=== PATIENT | female | born 1960 | race American Indian/Alaskan Native ===

== ENCOUNTER 2017-01-02 10:15 | Outpatient (CLI) | payer OTHER ==
--- NOTE | 2017-01-03 13:34 | Mammography Report ---
BILATERAL DIGITAL SCREENING MAMMOGRAM with CAD: 01/02/17 10:15:00 CLINICAL: Routine screening. COMPARISON:12/23/15, 07/03/13, 05/23/12 and 04/14/10 FINDINGS: The breasts are heterogeneously dense, which may obscure small masses. No mass, architectural distortion or suspicious calcifications. IMPRESSION: No mammographic evidence of malignancy. BI-RADS CATEGORY: 1 - - Negative RECOMMENDATION: Routine mammographic screening in one year. COMMENT: Patient follow-up letters are generated by our [email or web address] application.
== END 2017-01-02 10:16 | disposition home or self-care (01) ==
LOC: SPVWC 10:15
PROVIDERS: ATTEND Family Medicine
DX: Z12.31 Encounter for screening mammogram for malignant neoplasm of breast (principal)
CPT/HCPCS: 77067; G0202

== ENCOUNTER 2017-06-05 08:06 | Observation (INO) | payer OTHER ==
--- NOTE | 2017-06-03 10:40 | Anesthesia Consultation ---
Anesthesia Consult and Med Hx Date of service: 06/03/17 - Airway Anesthetic Teeth Evaluation: Dentures ROM Head & Neck: Adequate Mental/Hyoid Distance: Adequate Mallampati Class: Class II Intubation Access Assessment: Probably Good - Pulmonary Exam CTA: Yes - Cardiac Exam Cardiac Exam: RRR - Pre-Operative Health Status ASA Pre-Surgery Classification: ASA2 Proposed Anesthetic Plan: General Nerve Block: TAP - Cardiovascular System Hx Hypertension: Yes (x 10 yrs) - Central Nervous System Hx Psychiatric Problems: No - Endocrine Hx Non-Insulin Dependent Diabetes: Yes - Hematic Hx Anemia: Yes - Other Systems Hx Cancer: No
[2017-06-03 11:20] LABS: Basophils % (Auto) 0.7 % (0.0-1.8); Eosinophils % (Auto) 1.6 % (0.0-4.3); Hematocrit 36.8 % (30.3-42.9); Hemoglobin 12.6 gm/dl (10.1-14.3); Mean Corpuscular HGB Conc 34 % (30-34); Mean Corpuscular Volume 72 fl (79-97); Platelet Count 320 K/mm3 (140-440); Red Blood Count 5.08 M/mm3 (3.65-5.03); White Blood Count 6.8 K/mm3 (4.5-11.0)
[2017-06-03 11:36] LABS: Mean Corpuscular Hemoglobin 25 pg (28-32)
[2017-06-03 11:43] LABS: Anion Gap 20 mmol/L; BUN/Creatinine Ratio 21; Blood Urea Nitrogen 15 mg/dL (7-17); Calcium 9.2 mg/dL (8.4-10.2); Carbon Dioxide 22 mmol/L (22-30); Chloride 101.9 mmol/L (98-107); Glucose 154 mg/dL (65-100); Potassium 3.9 mmol/L (3.6-5.0); Sodium 140 mmol/L (137-145)
--- NOTE | 2017-06-05 07:21 | History and Physical Report ---
History of Present Illness Date of examination: 06/05/17 Date of admission: 06/05/2017 Chief complaint: Chronic pelvic pain History of present illness: 56-year-old 003 with a history of worsening chronic pelvic pain. The patient had an ultrasound that demonstrated findings of a leiomyoma measuring 2 cm. The ultrasound also indicated that the endometrial lining was thickened. The patient underwent an endometrial biopsy in the office with negative pathology. The patient has elected to undergo definitive surgical management. Past History Past Medical History: diabetes, high cholesterol Past Surgical History: cholecystectomy, other (tubal ligation) [employer] History: trichomonas Social history: single - Obstetrical History : 3 Para: 3 Hx # Term Pregnancies: 3 Number of Pregnancies: 0 Spontaneous Abortions: 0 Induced : 0 Number of Living Children: 3 Medications and Allergies Allergies Allergy/AdvReac Type Severity Reaction Status Date / Time No Known Allergies Allergy Unverified 05/31/17 13:21 Active Meds: Active Medications Sodium Chloride (Nacl 0.9% 1000 Ml) 1,000 mls @ 100 mls/hr IV DIRECT USAMA Review of Systems Genitourinary: pelvic pain - Physical Exam Breasts: Positive: deferred Cardiovascular: Regular rate Lungs: Positive: Clear to auscultation Abdomen: Positive: normal appearance Results Result Diagrams: 06/03/17 10:35 06/03/17 10:35 All other labs normal. Assessment and Plan - Patient Problems (1) Chronic pelvic pain in female Status: Acute Plan to address problem: Scheduled for robotic hysterectomy and bilateral salpingo-oophorectomy (2) Leiomyoma Status: Acute (3) Endometrial thickening on ultra sound Status: Acute
[~2017-06-05 08:06] MED LIST: ANCEF/STERILE WATER 2 GM/20 ML 2 GM/20 ML SYRINGE IV SCH; NEURONTIN PO NR; PEPCID PO NR; SUBLIMAZE IV ONE; VERSED IV NR
[2017-06-05] MEDS ORDERED: DILAUDID IV PRN (08:52)
[2017-06-05] MEDS ORDERED: NEURONTIN PO NR (09:00)
[2017-06-05] MEDS ORDERED: MARCAINE 0.5% INFILTRATI NR (09:00)
[2017-06-05] MEDS ORDERED: PEPCID PO NR (09:00)
[2017-06-05] MEDS ORDERED: XYLOCAINE 1% 20 mL INFILTRATI NR (09:00)
[2017-06-05] MEDS ORDERED: VERSED IV NR (09:00)
[2017-06-05] MEDS ORDERED: NACL BACTERIOSTATIC INFILTRATI ONE (09:16)
[2017-06-05] MEDS: NACL 0.9% 1000 ML 1,000 ML IV SCH ×2 (09:19→13:00)
[2017-06-05] MEDS ORDERED: ZOFRAN IV PRN (09:30)
[2017-06-05] MEDS ORDERED: SUBLIMAZE IV ONE (09:30)
--- NOTE | 2017-06-05 09:49 | Anesthesia Day of Surgery ---
Anesthesia Day of Surgery - Day of Surgery Patient Examined: Yes Patient H&P Reviewed: Yes Patient is NPO: Yes
[2017-06-05] MEDS ORDERED: DECADRON ONE ×2 (10:02→11:14)
[2017-06-05] MEDS ORDERED: MARCAINE 0.5% 30 ML INFILTRATI ONE (10:02)
[2017-06-05] MEDS ORDERED: CLONIDINE 1,000 MCG/10 ML VIAL EP ONE (10:02)
[2017-06-05] MEDS ORDERED: DIPRIVAN 10 MG/ML IV ONE (10:07)
[2017-06-05] MEDS ORDERED: DILAUDID ONE (10:08)
[2017-06-05] MEDS ORDERED: ZEMURON IV ONE (10:08)
[2017-06-05] MEDS ORDERED: XYLOCAINE MPF 2% ONE (10:08)
[2017-06-05] MEDS ORDERED: NEOSPORIN GU IR ONE ×2 (10:15→11:38)
--- NOTE | 2017-06-05 10:54 | XRay Report ---
PORTABLE CHEST INDICATION: Central line placement. COMPARISON: 03/12/2008 FINDINGS: Portable, frontal chest radiograph demonstrates normal cardiomediastinal silhouette. Clear lungs. No pneumothorax. Right IJ catheter tip about the cavoatrial junction. EKG leads. Intact bones. CONCLUSION: No acute chest process with uncomplicated right-sided central catheter, as described. Thank you for the opportunity to participate in this patient's care.
[2017-06-05] MEDS ORDERED: GELFOAM POWDER 1GM MM ONE ×2 (11:13→11:38)
[2017-06-05] MEDS ORDERED: THROMBIN (BOVINE) TP ONE ×2 (11:13→11:38)
[2017-06-05] MEDS ORDERED: ROBINUL ONE ×2 (11:14→12:01)
[2017-06-05] MEDS ORDERED: NEOSTIGMINE ONE (11:14)
[2017-06-05] MEDS ORDERED: ZOFRAN ONE (11:14)
[2017-06-05] MEDS ORDERED: NEO SYNEPHRINE/NS Syringe(OR USE) IV ONE (11:30)
[2017-06-05] MEDS ORDERED: NACL 0.9% IR ONE ×2 (11:37)
[2017-06-05] MEDS ORDERED: WATER FOR IRRIG STERILE IR ONE (11:37)
[2017-06-05] MEDS ORDERED: NACL 0.9% 1000 ML 1,000 ML ONE ×2 (12:01→13:50)
[2017-06-05] MEDS ORDERED: NARCAN 0.4 MG/1 ML IV PRN (12:06)
[2017-06-05] MEDS ORDERED: TYLENOL PO PRN (12:07)
[2017-06-05] MEDS ORDERED: ZOFRAN PO PRN (12:07)
[2017-06-05] MEDS ORDERED: MILK OF MAGNESIA PO PRN (12:07)
--- NOTE | 2017-06-05 12:13 | Operative Report ---
Operative Report Operative Report: Date of surgery: 06/05/2017 Preoperative diagnoses: Chronic pelvic pain; Thickened endometrium Postoperative diagnoses: Same as above; thickened adhesive disease Procedure: Robotic hysterectomy; lysis adhesions and bilateral salpingo- oophorectomy Surgeon: Flora Pepe M.D. Wet Process Head Miller: Corona Ferguson Anesthesia: Gen. endotracheal anesthesia Estimated blood loss: 50 mL Pathology: Uterus, cervix, tubes and ovaries Indication: 56-year-old black female with a history of worsening chronic pelvic pain and findings with thickened endometrial stripe on ultrasound. The patient failed medical management and elected to undergo definitive surgical management. Procedure: The patient was taken to the operating room and given general endotracheal anesthesia without complication. She is prepped and draped in a normal sterile fashion. A bivalve speculum was placed in the patient's vagina and a single- tooth tenaculum placed on the anterior lip of the cervix. The uterus was sounded with the uterine sound. A [employer] uterine manipulator was placed in the bivalve speculum was then removed. Attention was then turned to the patient's abdomen where a 12 millimeter supra umbilical skin incision was then made. A Veress needle was placed and peritoneal entry was verified water-filled syringe. Insufflation of the peritoneal cavity was performed with CO2 gas. The 12 mm trocar was then placed under direct visualization. An additional 8 mm trocar was placed on the patient's left and right lateral side just opposite of the supraumbilical trocar. An additional 5 mm right lateral trocar was then placed as the accessory port. There were extensive omental adhesions to the anterior abdominal wall. The monopolar scissors were inserted through the trocar and lysis of adhesions were performed of the omentum. The Cristi Boyd device was used to close the fascia of the 12 mm incision. The patient was then placed in steep Trendelenburg. The da Shahrzad robot was then engaged. A fenestrated forcep was placed in arm 2 and a vessel sealer was placed in arm 1. The surgeon then transferred to the surgical console. The infundibulopelvic ligament was then isolated on the right. The vessel sealer was used to coagulate the ligament which was then transected. The tube and ovary were transected from the supply. The round ligament was then coagulated and transected also. The vesicouterine peritoneum was then entered from the patient's right side. The uterine vessels were then coagulated with the vessel sealer. The vessels were then transected . Attention was then turned to the patient's left side where the infundibulopelvic ligament and mesosalpinx were again isolated coagulated and transected. The vesical peritoneum was then entered from the left and joined in the midline. Peritoneum was reflected off of the lower uterine segment. Uterine vessels were then coagulated and then transected. The blood supply to the uterus was adequately contained, a posterior colpotomy was made. The V care ring was visualized. Posterior colpotomy was created with the monopolar scissors. The incision was continued circumferentially until anterior colpotomy was made. The cervix and uterus were amputated from the vaginal cuff. The uterus was then removed along with the tubes and ovaries bilaterally through the vagina and a warm laparotomy sponge was placed and maintain the pneumoperitoneum. The vaginal cuff was then closed in a running fashion with V lock suture. Irrigation of the pelvis was performed. Gelfoam with thrombin was applied to the incision. The skin was then reapproximated with 4-0 Monocryl. The tissue was sent to pathology which included the cervix, uterus, tubes and ovaries. The patient was then successfully extubated. She was then taken to the recovery room in stable condition. All sponge laps and needle counts were correct x2.
[2017-06-05] MEDS ORDERED: D5LR 1,000 ML IV SCH (13:00)
[2017-06-05] MEDS ORDERED: MORPHINE PCA 30MG/30ML IV SCH (13:00)
[2017-06-05] MEDS: TORADOL IV SCH ×2 (13:21→20:05)
[2017-06-05] MEDS ORDERED: TORADOL ONE (13:22)
[2017-06-06] MEDS: TORADOL IV SCH ×2 (01:36→08:06)
[2017-06-06 06:22] LABS: Hematocrit 33.9 % (30.3-42.9); Hemoglobin 11.5 gm/dl (10.1-14.3)
--- NOTE | 2017-06-06 07:53 | Progress Note ---
Assessment and Plan - Patient Problems (1) Chronic pelvic pain in female Current Visit: Yes Status: Acute Plan to address problem: Patient doing well Advanced to regular diet Patient may be discharged once she tolerates her regular diet. (2) Leiomyoma Current Visit: Yes Status: Acute (3) Endometrial thickening on ultra sound Current Visit: Yes Status: Acute Subjective - Subjective Date of service: 06/06/17 Interval history: The patient reports feeling hungry today. She denies any nausea and vomiting. She reports mild discomfort but overall her pain has been well-controlled. Patient reports: appetite normal, pain well controlled Objective - Vital Signs Latest vital signs: Vital Signs Temp Pulse Resp BP BP Pulse Ox 06/06/17 05:00 98.4 F 63 16 102/52 06/06/17 02:06 16 06/06/17 01:36 16 06/06/17 00:03 97.9 F 62 20 107/50 06/05/17 22:11 18 06/05/17 20:35 18 06/05/17 20:20 97.6 F 68 18 105/50 06/05/17 20:05 18 06/05/17 20:00 18 06/05/17 17:45 98.1 F 62 18 110/58 100 06/05/17 14:25 97.9 F 61 16 116/56 06/05/17 14:20 97.9 F 61 16 116/56 100 06/05/17 13:55 97.5 F L 62 16 106/55 98 06/05/17 13:40 59 L 15 102/54 97 06/05/17 13:25 97.5 F L 64 15 113/60 98 06/05/17 13:10 64 15 102/52 100 06/05/17 13:05 64 13 109/56 99 06/05/17 13:00 55 L 13 99/52 99 06/05/17 12:55 55 L 13 106/55 99 06/05/17 12:50 56 L 12 95/49 99 06/05/17 12:45 55 L 12 98/50 99 06/05/17 12:40 56 L 12 96/50 99 06/05/17 12:35 56 L 12 96/50 98 06/05/17 12:30 58 L 12 97/49 98 06/05/17 12:25 58 L 12 85/43 96 06/05/17 12:22 98.2 F 58 L 10 L 87/42 95 06/05/17 10:10 93 H 11 L 145/92 94 06/05/17 10:00 91 H 13 153/91 97 06/05/17 09:34 98.2 F 88 20 139/78 99 06/05/17 08:30 98.2 F 88 20 139/78 99 Intake and Output 06/05/17 06/06/17 06/06/17 22:59 06:59 14:59 Intake Total 480 480 Output Total 500 900 Balance -20 -420 Intake: Oral 120 480 Intake, Free Water 360 Output: Urine 500 900 Indwelling Catheter 500 900 Other: Total, Intake Amount 120 240 Total, Output Amount 500 900 - Exam Abdomen: Present: normal appearance, soft Incision: Present: normal - Labs Labs: Abnormal lab results 06/05/17 06/05/17 06/05/17 Range/Units 08:50 12:35 14:05 POC Glucose 155 H 218 H 185 H (70-105) 06/05/17 Range/Units 17:35 POC Glucose 206 H (70-105)
--- NOTE | 2017-06-06 07:55 | Discharge Summary ---
Providers - Providers Date of Admission: 06/05/17 12:07 Date of discharge: 06/06/17 Attending physician: GREGG SY Primary care physician: KAREN AYERS Hospitalization Reason for admission: other (chronic pelvic pain and abnormal uterine bleeding) Procedure: other (robotic hysterectomy and bilateral salpingo-oophorectomy) Incision: normal Discharge diagnosis: other (chronic pelvic pain) Hospital course: The patient was admitted the day of surgery underwent a robotic hysterectomy and bilateral salpingo-oophorectomy. Please see operative note for details of surgery. Her postoperative course was uncomplicated. Condition at discharge: Good Disposition: [id number] TO HOME OR SELFCARE - Discharge Diagnoses (1) Chronic pelvic pain in female Status: Acute (2) Leiomyoma Status: Acute (3) Endometrial thickening on ultra sound Status: Acute Plan - Discharge Medications Prescriptions: Ibuprofen [Motrin] 800 mg PO Q8HR PRN #60 tablet PRN Reason: Pain Oxycodone HCl/Acetaminophen [Percocet 7.5/325 mg] 1 each PO Q6HR PRN #45 tablet PRN Reason: Pain - Provider Discharge Summary Activity: no sex for 6 weeks, no heavy lifting 4 weeks, no strenuous exercise Diet: routine Instructions: routine Additional instructions: [] Smoking cessation referral if applicable(refer to patient education folder for contact #) [] Refer to [facility] Booklet Call your doctor immediately for: * Fever > 100.5 * Heavy vaginal bleeding ( >1 pad per hour) * Severe persistent headache * Shortness of breath * Reddened, hot, painful area to leg or breast * Drainage or odor from incision. * Keep incision clean and dry at all times and follow doctor's instructions regarding bathing/showering Follow-up with Dr. Pandey in 4 weeks - Follow up plan
[2017-06-06] MEDS: GLUCOPHAGE PO SCH ×2 (08:44→17:30)
[2017-06-06] MEDS: PERCOCET 5/325 PO PRN ×2 (08:59→17:34)
[2017-06-06] MEDS: MOTRIN PO PRN (17:35)
[2017-06-07] MEDS: GLUCOPHAGE PO SCH (10:45)
[2017-06-07] MEDS: PERCOCET 5/325 PO PRN (10:51)
[2017-06-07] MEDS: MOTRIN PO PRN (10:52)
--- NOTE | 2017-06-07 11:21 | Event Note ---
Date: 06/07/17 Pt stayed overnight because she began feeling dizzy with ambulation and needed diabetic teaching for new diagnosis of diabetes. She has since received diabetic teaching and no longer feels dizzy with ambulation per RN. Plan to discharge pt home today with follow up as previously scheduled.
[2017-06-07 11:30] VITALS: BP 134/68
== END 2017-06-07 17:30 | disposition home or self-care (01) ==
LOC: OR 08:06 → OB 12:07
PROVIDERS: ADMIT Obstetrics & Gynecology; ATTEND Obstetrics & Gynecology
DX: D25.1 Intramural leiomyoma of uterus (principal); R10.2 Pelvic and perineal pain; G89.29 Other chronic pain; R93.8 Abnormal findings on diagnostic imaging of other specified body structures; E11.9 Type 2 diabetes mellitus without complications; E78.00 Pure hypercholesterolemia, unspecified; Z90.49 Acquired absence of other specified parts of digestive tract
CPT/HCPCS: 36415; 58571; 64450; 71010; 80048; 82962; 84703; 85014; 85018; 85025; 86850; 86900; 86901; 88307; 96374; 96375; 96376; A4217; A4649; G0378; J0690; J0735; J1100; J1170; J1885; J2250; J2270; J2370; J2405; J2704; J2710; J3010; J7030; J7121; S2900; J1815

== ENCOUNTER 2018-02-07 14:39 | Outpatient (CLI) | payer OTHER ==
--- NOTE | 2018-02-07 15:43 | Mammography Report ---
BILATERAL MAMMOGRAM: FINDINGS: The breast tissue is heterogeneously dense, which could obscure detection of small masses (approximately 50%-75% glandular). No mass, distortion, suspicious calcification, or skin change is seen. No significant change compared to exams dating back to December 2015. CAD was utilized. IMPRESSION: Negative mammogram. There is no mammographic evidence of malignancy. RECOMMENDATION: Follow-up per ACS guidelines. BI-RADS CATEGORY: 1 = Negative ACR BI-RADS MAMMOGRAPHIC CODES: 0 = Needs additional imaging evaluation; 1 = Negative; 2 = Benign; 3 = Probably benign; 4 = Suspicious; 5 = Malignant; 6 = Known biopsy-proven malignancy COMMENT: 1. Dense breast tissue, i.e., adenosis, fibrocystic changes, etc., may obscure an underlying neoplasm. 2. Approximately 10% of cancers are not detected with mammography. 3. A negative mammography report should not delay biopsy if a clinically suspicious mass is present. COMMENT: Patient follow-up letters are generated in [employer].
== END 2018-02-07 14:40 | disposition home or self-care (01) ==
LOC: SPVWC 14:39
PROVIDERS: ATTEND Family Medicine
DX: Z12.31 Encounter for screening mammogram for malignant neoplasm of breast (principal); I10 Essential (primary) hypertension; E11.9 Type 2 diabetes mellitus without complications; E78.00 Pure hypercholesterolemia, unspecified; D64.9 Anemia, unspecified
CPT/HCPCS: 77067

== ENCOUNTER 2019-04-17 14:46 | Outpatient (CLI) | payer OTHER ==
--- NOTE | 2019-04-20 09:52 | Mammography Report ---
DIGITAL SCREENING MAMMOGRAM WITH CAD, 04/17/2019 INDICATION: Routine screening mammography. TECHNIQUE: Digital bilateral 2D mammography was obtained in the craniocaudal and mediolateral obliq ue projections. This examination was interpreted with the benefit of Computer-Aided Detection analysi s. COMPARISON: 02/07/2018 FINDINGS: Breast Density: The breasts are heterogeneously dense, which may obscure small masses. There is no evidence of dominant mass, suspicious calcifications or architectural distortion in eithe r breast. IMPRESSION: No mammographic evidence of malignancy. Follow up recommendation: Routine yearly BI-RADS Category 1: Negative. A "normal" or negative report should not discourage follow up or biopsy of a clinically significant f inding. A written summary of these findings will be mailed to the patient. The patient will be entered into a mammography reporting system which will generate a reminder letter for the patient's next appointmen t at the appropriate interval. The [employer] recommends yearly mammograms starting at age 40 and continuing as l malcolm as a woman is in good health. Breast MRI is recommended for women with an approximate 20-25% or greater lifetime risk of breast cancer, including women with a strong family history of breast or ova jen cancer or who have been treated for Hodgkin's disease. Signer Name: Kenan Martin MD Signed: 04/20/2019 9:48 AM Workstation Name: [id number]
== END 2019-04-17 14:47 | disposition home or self-care (01) ==
LOC: SPVWC 14:46
PROVIDERS: ATTEND Family Medicine
DX: Z12.31 Encounter for screening mammogram for malignant neoplasm of breast (principal)
CPT/HCPCS: 77067

== ENCOUNTER 2021-05-13 08:08 | Outpatient (CLI) | payer OTHER ==
--- NOTE | 2021-05-13 12:17 | Mammography Report ---
DIGITAL SCREENING MAMMOGRAM WITH CAD, 05/13/2021 CLINICAL INFORMATION / INDICATION: Routine screening mammography. SCREENING MAMMOGRAM TECHNIQUE: Digital bilateral 2D mammography was obtained in the craniocaudal and mediolateral obliqu e projections. This examination was interpreted with the benefit of Computer-Aided Detection analysis . COMPARISON: None 07/02/2019. FINDINGS: Breast Density: There are scattered areas of fibroglandular density. No dominant mass, suspicious calcifications, or architectural distortion in either breast. IMPRESSION: No mammographic evidence of malignancy. Follow up recommendation: Routine yearly BI-RADS Category 1: Negative. A "normal" or negative report should not discourage follow up or biopsy of a clinically significant f inding. A written summary of these findings will be mailed to the patient. The patient will be entered into a mammography reporting system which will generate a reminder letter for the patient's next appointmen t at the appropriate interval. The [employer] recommends yearly mammograms starting at age 40 and continuing as l malcolm as a woman is in good health. Breast MRI is recommended for women with an approximate 20-25% or greater lifetime risk of breast cancer, including women with a strong family history of breast or ova jen cancer or who have been treated for Hodgkin's disease. Signer Name: Jose Angel Miguel MD Signed: 05/13/2021 12:12 PM Workstation Name: [id number]
== END 2021-05-13 08:09 | disposition home or self-care (01) ==
LOC: SPVWC 08:08
PROVIDERS: ATTEND Family Medicine
DX: Z12.31 Encounter for screening mammogram for malignant neoplasm of breast (principal)
CPT/HCPCS: 77067